=== PATIENT | female | born 1990 | race Caucasian/White ===

== ENCOUNTER 2019-05-01 05:33 | Inpatient (IN) | payer OTHER ==
[~2019-05-01] VITALS: Ht 162.6 cm; Wt 82.7 kg
[2019-05-01] VITALS (20 sets, daily range): BP systolic 116–143; BP diastolic 65–91; PULSE 70–107; TEMP 97.5–99.6
--- NOTE | 2019-05-01 05:50 | NUR ---
Pt arrived on unit ambulatory escorted by and with complaints of SROM with clear fluid around 3am at home. Pt denies contractions and vaginal bleeding. Pt also reports normal movement. EFM and toco monitors started. Amnio-test positive. SVE by this RN / with clear fluid noted on exam. Information reviewed with Dr. Franco. FHR tracing reviewed. Orders for labor admission received. Plan of care reviewed with pt and at the bedside.
--- NOTE | 2019-05-01 06:15 | NUR ---
0615-Recieved report from ZACHARY Mckenzie. Assessment complete. 0650-iv to right hand, attempt x2. Blood collected and sent to lab. 0652-Patient up to bathroom. Remains off monitor and ambulates in room. 0751-Patient back on EFM. Reports 'cramping but not regular contraction pain." BP remains elevated 137/92. 0810-Dr. Sanchez on unit reviews FHR monitor and updated on VS. Orders to obtain CMP. 0615-Bedside sono by . Breech presentation confirmed by . Patient and Spouse review options for delivery with Dr. Arellano. Patient desires primary c/s. 0830-BRONSON Retana to patient room. Reviews anesthesia procedure with patient. IVF bolus. Mons pubis clipped. 0838-Patient off EFM, abdomen cleansed. 0858-Patient ambulatory to OR with spouse.
[2019-05-01] MEDS ORDERED: PRENATAL (07:36)
[2019-05-01 07:46] LABS: BASO % 0.4 % (0.0-2.0); EOS # 0.1 (0.0-0.7); EOS % 1.1 % (0-4.0); GRAN % 70.9 % (42.2-75.2); LYMPH # 1.6 (1.2-3.4); LYMPH % 18.8 % (20.0-51.0); MEAN CELL VOLUME 87 fl (80.0-100.0); MEAN CORPUSCULAR HEMOGLOBIN 29 pg (27.0-31.0); MEAN CORPUSCULAR HGB CONC 33 g/dl (33.0-37.0); MEAN PLATELET VOLUME 11.6 fl (7.4-10.4); MONO # 0.7 (0.1-0.6); MONO % 8.3 % (1.7-9.3); PLATELET COUNT 200 K/mm3 (130-400); REDCELL DISTRIBUTION WIDTH-CV 13.2 % (11.5-14.5)
[2019-05-01 08:41] LABS: ALBUMIN 3.8 gm/dL (3.5-5.0); BILIRUBIN,TOTAL 0.3 mg/dL (0.0-1.0); CALCIUM 8.8 mg/dL (8.4-10.2); CREATININE, serum 0.51 (0.52-1.25); POTASSIUM 3.9 mmol/L (3.4-5.0); TOTAL PROTEIN 7.4 gm/dL (6.4-8.2)
--- NOTE | 2019-05-01 10:00 | NUR ---
1000-Patient to PACU via bed. Recieved report from Mazin DOBSON. Patient A&O x4. Abdomen with dressing C/D/I. IVF to Right hand. Melton to DD, clear yellow urine. Fundus firm, lochia WNL. 1030-Patient room 209. Oriented to room. Updated on plan of care. Fundus remains firm, lochia WNL.
--- NOTE | 2019-05-01 17:30 | NUR ---
1730-Catheter discontinued, Patient ambulates to bathroom with steady gait. Olya care assisted. Ambulates back to bed. Updated on plan of care and safety.
[2019-05-02 04:00] VITALS: BP 111/66; PULSE 81; TEMP 98.5
[2019-05-02 07:24] LABS: HEMOGLOBIN 11.8 g/dl (12.5-16.0)
[2019-05-02 07:29] LABS: HEMATOCRIT 36.6 % (37.0-47.0)
[2019-05-02 08:30] VITALS: BP 125/78; PULSE 77; TEMP 98.3
[2019-05-02 16:30] VITALS: BP 135/89; PULSE 83; TEMP 98.7
[2019-05-02 20:00] VITALS: BP 146/98; PULSE 85; TEMP 98.1
--- NOTE | 2019-05-03 01:00 | NUR ---
REPORT GIVEN TO ZACHARY LAKE.
[2019-05-03 02:00] VITALS: BP 129/86; PULSE 88; TEMP 98
[2019-05-03 08:17] VITALS: BP 124/78; PULSE 76; TEMP 98.1
--- NOTE | 2019-05-03 11:11 | NUR ---
Initial visit; Parents thanked for offering congratulations for the of their daughter. Acoustical Installer thanked family for choosing [facility].
[2019-05-03 16:22] VITALS: BP 122/68; PULSE 78; TEMP 98.1
[2019-05-03 20:00] VITALS: BP 135/84; PULSE 87; TEMP 98
[2019-05-04 07:27] VITALS: BP 138/82; PULSE 76; TEMP 98.3
[2019-05-04] MEDS ORDERED: PERCOCET 325 MG1 TA2 PO (08:54)
[2019-05-04] MEDS ORDERED: IBU600 MG PO (08:54)
[2019-05-04 16:00] VITALS: BP 138/85; PULSE 77; TEMP 97.6
--- NOTE | 2019-05-04 16:32 | NUR ---
PATIENT DISCHARGE INSTRUCTIONS REVIEWED WITH HER AND . SCRIPT FOR PERCOCET GIVEN AND EXPLAINED. PATIENT VERBALIZES UNDERSTANDING.
== END 2019-05-04 17:30 | disposition home or self-care (01) | DRG 788 ==
LOC: LDRO 05:33 → OB 06:13 → LDR 06:13 → OB 10:45
PROVIDERS: Obstetrics & Gynecology; ADMIT Obstetrics & Gynecology
PROC: 10D00Z1 Extraction of Products of Conception, Low, Open Approach (ICD-10-PCS; principal; 2019-05-01)
DX: O32.1XX0 Maternal care for breech presentation, not applicable or unspecified (principal); Z3A.38 38 weeks gestation of pregnancy; Z37.0 Single live birth; O36.5930 Maternal care for other known or suspected poor fetal growth, third trimester, not applicable or unspecified; O75.89 Other specified complications of labor and delivery; G43.909 Migraine, unspecified, not intractable, without status migrainosus
CPT/HCPCS: J0690; J1885; J2370; J2405; J2590; J3010; J7120

== ENCOUNTER 2023-11-14 03:02 | Inpatient (IN) | payer OTHER ==
[~2023-11-14] VITALS: Ht 165.1 cm; Wt 95.0 kg
[2023-11-14] VITALS (22 sets, daily range): BP systolic 96–148; BP diastolic 51–89; PULSE 60–127; TEMP 97.8–98.2
[~2023-11-14 03:02] MED LIST: IBU600 MG PO; PERCOCET 325 MG1 TA2 PO; PRENATAL
--- NOTE | 2023-11-14 05:40 | NUR ---
G2 at 38 weeks + arrives to unit ambulatory for section. Pt oriented to room, bed in low and locked position, call light within reach. Clean gown on. US and toco explained and applied. Vitals obtained. 18G IV started in left forearm with 1 attempt. Admission labs obtained off IV start. Lactated Ringers bolus infusing. Consents reviewed and signed with patient.
[2023-11-14] MEDS ORDERED: LR 1,000 ML IV SCH ×2 (05:45→06:00)
[2023-11-14 06:46] LABS: BASO # 0.1 K/mm3 (0.0-0.2); BASO % 0.6 % (0.0-2.0); EOS # 0.1 K/mm3 (0.0-0.7); EOS % 1.6 % (0.0-4.0); GRAN # 5.7 K/mm3 (1.4-6.5); GRAN % 65.1 % (42.2-75.2); HEMATOCRIT 38.6 % (37.0-47.0); LYMPH # 2.2 K/mm3 (1.2-3.4); LYMPH % 24.9 % (20.0-51.0); MEAN CELL VOLUME 86 fl (80.0-100.0); MEAN CORPUSCULAR HEMOGLOBIN 29 pg (27-31); MEAN CORPUSCULAR HGB CONC 34 g/dl (33.0-37.0); MEAN PLATELET VOLUME 11.8 fl (7.4-10.4); MONO # 0.7 K/mm3 (0.1-0.6); MONO % 7.5 % (1.7-9.3); PLATELET COUNT 200 K/mm3 (130-400); RED BLOOD COUNT 4.48 M/mm3 (4.10-5.30); REDCELL DISTRIBUTION WIDTH-CV 13.9 % (11.5-14.5)
[2023-11-14] MEDS ORDERED: Meperidine 50 MG/ML 1 ML VIAL IV PRN (07:00)
[2023-11-14] MEDS ORDERED: diphenhydrAMINE 50 MG/ML 1 ML VIAL IV PRN (07:00)
[2023-11-14] MEDS ORDERED: Ondansetron 4 MG/2 ML VIAL IV PRN ×2 (07:00→09:00)
[2023-11-14] MEDS ORDERED: Ketorolac 30 MG/ML VIAL ONE (07:04)
[2023-11-14] MEDS ORDERED: Ondansetron 4 MG/2 ML VIAL ONE (07:04)
[2023-11-14] MEDS ORDERED: dexAMETHasone 10 MG/ML VIAL ONE (07:04)
[2023-11-14] MEDS ORDERED: Oxytocin 10 UNITS/ML VIAL ONE (07:04)
[2023-11-14] MEDS ORDERED: NS 30 ML IV ONE (07:04)
[2023-11-14] MEDS ORDERED: Phenylephrine 10 MG/ML VIAL ONE (07:05)
[2023-11-14] MEDS ORDERED: EPINEPHrine 1 MG/1 ML Ampule ONE (07:57)
--- NOTE | 2023-11-14 08:44 | NUR ---
VIABLE FEMALE INFANT DELIVERED VIA AT 0752 AM. X2, RNX2 PRESENT
[2023-11-14] MEDS ORDERED: Naloxone 0.4 MG/ML VIAL IV PRN (09:00)
[2023-11-14] MEDS ORDERED: Measles/Mumps/Rubella Virus Vaccine Live w Diluent 0.5 ML VIAL SQ SCH (09:00)
[2023-11-14] MEDS ORDERED: Loratadine 10 MG TAB PO PRN (09:00)
[2023-11-14] MEDS ORDERED: Magnes Hydrox (MOM) 80 MG/ML 30 ML CUP PO PRN (09:00)
[2023-11-14] MEDS ORDERED: oxyCODONE/Acetaminophen 5-325 MG TAB PO PRN (09:00)
[2023-11-14] MEDS ORDERED: LR 1,000 ML IV PRN (09:00)
--- NOTE | 2023-11-14 12:45 | NUR ---
1005 REPORT GIVEN TO AND PT CARE ASSUMED BY MANUEL SHARMA AT THIS TIME.
[2023-11-14] MEDS ORDERED: Ibuprofen 800 MG TAB PO SCH (14:58)
[2023-11-14] MEDS ORDERED: Sennosides/Docusate 8.6-50 MG TAB PO SCH (17:00)
[2023-11-14] MEDS ORDERED: traZODone 50 MG TAB PO PRN (21:00)
[2023-11-15 00:30] VITALS: BP 127/73; PULSE 67; TEMP 97.7
[2023-11-15 04:15] VITALS: BP 129/88; PULSE 67; TEMP 97.6
[2023-11-15 08:15] VITALS: BP 124/72; PULSE 61; TEMP 97.3
[2023-11-15] MEDS ORDERED: IBU800 M1 PO (10:18)
[2023-11-15] MEDS ORDERED: PERCOCET 325 MG1 TA2 PO (10:18)
--- NOTE | 2023-11-15 11:30 | NUR ---
Rests in bed, alert. Visits with family. Denies any discomfort or needs at this time.
--- NOTE | 2023-11-15 12:53 | NUR ---
Data: Patient declined Lifestyle Director visit offered during Lifestyle Director rounds. Assessment: Patient declined. Plan of Care: Chaplains will remain available if requested while Patient is admitted to this hospital.
--- NOTE | 2023-11-15 16:00 | NUR ---
Ambulates to the nursery with baby in open crib with spouse. Bath given to baby while parents watched. 1620 Ambulates back to room with baby in open crib.
[2023-11-15 17:00] VITALS: BP 122/78; PULSE 71; TEMP 97.7
--- NOTE | 2023-11-15 17:08 | NUR ---
Rests in chair, alert. Ibuprofen 800 mg given as ordered. Holds baby lovingly.
[2023-11-15 20:30] VITALS: BP 125/73; PULSE 80; TEMP 98.2
--- NOTE | 2023-11-16 08:20 | NUR ---
Rests in chair eating breakfast. Ibuprofen 800 mg given as ordered. Denies any other needs at this time.
[2023-11-16 09:15] VITALS: BP 131/87; PULSE 77; TEMP 97.9
--- NOTE | 2023-11-16 09:15 | NUR ---
Rests in bed, alert. Denies any discomfort or needs at this time.
--- NOTE | 2023-11-16 10:15 | NUR ---
Rests in rocking chair holding baby. Oxycodone 5/325 mg one tab given per request and as ordered.
--- NOTE | 2023-11-16 14:30 | NUR ---
Oxycodone 5 mg given per request and as ordered.
[2023-11-16 16:00] VITALS: BP 130/86; PULSE 74; TEMP 97.8
== END 2023-11-16 16:55 | disposition home or self-care (01) | DRG 788 ==
LOC: OB 03:02
PROVIDERS: ADMIT Student in an Organized Health Care Education/Training Program
PROC: 10D00Z1 Extraction of Products of Conception, Low, Open Approach (ICD-10-PCS; principal; 2023-11-14)
DX: O34.219 Maternal care for unspecified type scar from previous cesarean delivery (principal); Z3A.38 38 weeks gestation of pregnancy; Z37.0 Single live birth; O99.214 Obesity complicating childbirth; E66.01 Morbid (severe) obesity due to excess calories; O36.5930 Maternal care for other known or suspected poor fetal growth, third trimester, not applicable or unspecified
CPT/HCPCS: J0171; J0665; J0690; J1100; J1885; J2371; J2405; J2590; J7120